=== PATIENT | male | born 1985 | race Caucasian/White ===

== ENCOUNTER 2017-09-12 02:00 | Emergency (ER) | payer OTHER ==
[~2017-09-12] VITALS: Ht 182.9 cm; Wt 97.7 kg
[2017-09-12 02:30] LABS: BASOPHIL (%) 1.5 % (0-1); BASOPHIL COUNT 0.1 K/uL (0-0.1); EOSINOPHIL (%) 1.7 % (0-5); EOSINOPHIL COUNT 0.1 K/uL (0-0.3); HEMOGLOBIN 15.6 G/DL (12.5-16.6); IMMATURE GRANULOCYTE (%) 0.5 % (0.0-0.7); LYMPHOCYTE (%) 33.1 % (15-42); LYMPHOCYTE COUNT 1.4 K/uL (1.0-2.8); MCH 31.8 PG (29.0-34.0); MCHC 36.3 G/DL (30.0-36.0); MCV 87.6 FL (86-99); MONOCYTE (%) 9.6 % (3-12); MONOCYTE COUNT 0.4 K/uL (0-0.8); NEUTROPHIL (%) 53.6 % (45-76); NEUTROPHIL COUNT 2.2 K/uL (1.8-6.4); PLATELET COUNT 166 K/uL (156-360); RBC DIS.WIDTH-CV 11.6 % (11.8-14.6); RBC DIS.WIDTH-SD 37.3 % (39-53); RED BLOOD COUNT 4.91 M/uL (4.00-5.50); WHITE BLOOD COUNT 4.1 K/uL (4.1-10.2)
[2017-09-12 02:37] LABS: D-DIMER ELISA < 150.00 ng/mLDDU (<230)
[2017-09-12 02:40] LABS: ALBUMIN 4.6 g/dL (3.2-4.8)
[2017-09-12 02:41] LABS: CHLORIDE 103 mEq/L (99-109); POTASSIUM 3.6 mEq/L (3.7-5.4); SODIUM 138 mEq/L (136-147)
[2017-09-12 02:43] LABS: GLUCOSE 112 mg/dL (70-99); TOTAL PROTEIN 7.2 g/dL (6.4-8.3)
[2017-09-12 02:45] LABS: TOTAL BILIRUBIN 1.6 mg/dL (0.0-1.0)
[2017-09-12 02:46] LABS: ALKALINE PHOSPHATASE 54 IU/L (3-129)
[2017-09-12 02:47] LABS: CREATININE 0.9 mg/dL (0.6-1.3)
[2017-09-12 02:48] LABS: AST (GOT) 79 IU/L (2-34); UREA NITROGEN (BUN) 18 mg/dL (9-23)
[2017-09-12 02:50] LABS: ALT (GPT) 83 IU/L (3-49); CREATINE KINASE 617 IU/L (1-294); TOTAL CK 617 IU/L (1-294); TROP-I INTERPRETATION NEGATIVE; TROPONIN-I < 0.01 ng/mL (0.0-0.30)
[2017-09-12 02:55] LABS: CK-MB 5.8 ng/mL (0.0-4.9); CKMB RELATIVE INDEX 0.9 (0.0-3.9)
[2017-09-12 02:57] LABS: GFR ESTIMATE (CALCULATED) > 59 mL/min/ (58.99-99999)
[2017-09-12 04:35] LABS: TROP-I INTERPRETATION NEGATIVE; TROPONIN-I < 0.01 ng/mL (0.0-0.30)
[2017-09-12] MEDS ORDERED: ATIVAN1 MG PO (05:21)
[2017-09-12 07:03] VITALS: BP 144/98
== END 2017-09-12 07:03 | disposition home or self-care (01) ==
LOC: EDBD 02:00 → EME 02:00
PROVIDERS: Emergency Medicine
DX: R07.89 Other chest pain (principal); F10.239 Alcohol dependence with withdrawal, unspecified
CPT/HCPCS: 71046; 80053; 82550; 82550 91; 82553; 84484; 85025; 85379; 93005; J2405; J7030